=== PATIENT | male | born 1945 | race Caucasian/White ===

== ENCOUNTER 2017-05-19 16:32 | Emergency (ER) | payer MEDICARE, OTHER ==
[2017-05-19] MEDS: LIDOCAINE 1%/EPINEPHRINE 20ML VIAL IJ ONE ×2 (16:55→17:14)
--- NOTE | 2017-05-19 17:13 | ED Physician Documentation ---
Fall - HISTORIAN Historian: patient - HPI Stated Complaint: fell over on ladder Chief Complaint: Fall Onset: just prior to arrival Where: home Context: other (slipped) Associated Symptoms:: no loss of consciousness Location of Pain/Injury: face Injury to Right Extremity: none Injury to Left Extremity: none Further Comments: yes (71 year old male patient presents with laceration to forehead. Patient states hewas on the ladder about 4-5 feet up, ladder slipped. Cut his face on his glasses when he fell. Last tetnus December 2014, denies any ANTON, neck pain or back pain) - ROS CONST: no problems NEURO: denies: dizziness MS/SKIN/LYMPH: denies: weakness, numbness, neck pain, back pain EYES/ENT: none CVS/RESP: none GI/: denies: nausea, vomiting - PAST HX Past History: other (hypertension, HLD) Allergies/Adverse Reactions: Allergies Allergy/AdvReac Type Severity Reaction Status Date / Time No Known Allergies Allergy Verified 05/19/17 16:49 Home Medications: Ambulatory Orders Medication Instructions Recorded Lisinopril [Lisinopril] 20 mg D 12/17/14 Simvastatin [Simvastatin] 40 mg D 12/17/14 - SOCIAL HX Smoking History: non-smoker - FAMILY HX Family History: denies: none - VITAL SIGNS Vital Signs: Vital Signs Temp Pulse Resp BP Pulse Ox 72 16 157/70 95 05/19/17 16:35 05/19/17 16:35 05/19/17 16:35 05/19/17 16:35 - REVIEWED ASSESSMENTS Nursing Assessment Reviewed: Yes Vitals Reviewed: Yes Procedures Wound Location: face Wound Length: 1 cm x 2.5 cm Wound's Depth, Shape: linear Wound Explored: clean Irrigated w/ Saline (ccs): 700 Betadine Prep?: No (chlorhexidine) Anesthesia: Lidocaine w/ Epi Volume of Anesthetic: 7 Suture Size/Type: 6:0 Number of Sutures: 9 Layer Closure?: No Sterile Dressing Applied?: Yes Progress: Patient tolerated well, edges well approximated. ED Results Lab/Radiology - Orders Orders: ED Orders Category Date Time Status Lidocaine 1%/Epinephrine [Xylocaine 1%-EPI 1:100,000] Med 05/19/17 16:50 Discontinued 1 ml IJ .STK-MED ONE Lidocaine 1%/Epinephrine [Xylocaine 1%-EPI 1:100,000] Med 05/19/17 16:52 Discontinued 1 ml IJ NOW ONE Sodium Bicarbonate [Neut] Med 05/19/17 16:51 Discontinued 2.4 meq INJ NOW ONE Fall Physical Exam - Physical Exam General Appearance: mild distress Head: non-tender, no swelling, no obvious injury, trauma (Laceration to forehead L shaped 1 cm x 2.5cm; abrasion between eye brows) Neck: non-tender, painless ROM, trachea midline Eye: JUAN, EOMI, lids & conjunct. nml ENT: nml external inspection Resp/CVS: chest non-tender, no ecchymosis, breath sounds nml, no resp. distress , heart sounds nml Abdomen: soft, no organomegaly, normal bowel sounds, no abdominal bruit, no distension Neuro: oriented x3, CN's nml as tested, sensation nml, motor nml, mood/affect nml, auto glass technician nml, reflexes nml, auto glass technician symmetrical Skin: color nml, no rash, nml palp., dry Back: normal inspection, no CVA tenderness Extremities: atraumatic, pelvis stable, hips non-tender, no pedal edema, nml ROM , nml color/temp - Geneva Coma Score Eyes Open: Spontaneous Speech: Oriented Motor: Obeys Commands Discharge Clincal Impression: Facial laceration Qualifiers: Encounter type: initial encounter Qualified Code(s): S01.81XA - Laceration without foreign body of other part of head, initial encounter Fall from ladder Qualifiers: Encounter type: initial encounter Qualified Code(s): W11.XXXA - Fall on and from ladder, initial encounter Referrals: Primary Doctor,No [Primary Care Provider] - 2 Days Additional Instructions: You can wash or shower after 24 hours. Do not soak the wound in water and make sure it is dry afterwards (gently pat the area dry with a clean towel). Do not get into a swimming pool, hot tub, correa or river until your stitches are removed. To remove your dressing, gently pull it off. If needed, you can dampen it with water then gently pull it off. Clean the laceration twice a day with hibiclens and rinse with water clean away any scabbed area Apply thin coat of antibiotic ointment after cleaning the wound. Cover with non-adherent bandage if able. If you have pain, take simple pain relief medication such as Tylenol or ibuprofen. If bandages or dressings get wet, they will need to be changed. Call your doctor for any signs of symptom of infection redness, drainage, pain. Return to ER if you have: 1. Confusion or very sleepy 2.Severe or worsening headache 3.Seizure 4.Start Vomiting, have fever >101.5, or stiff neck 5.Loss of control or urine or bowel 6.Trouble walking 7.Diet: Start with Clear liquids and advance diet as tolerated. Have your stitches removed at your doctors office in 8-10 days. Disposition: 01 HOME, SELF-CARE Decision to Admit: NO Decision Time: 17:13
[2017-05-19] MEDS: SODIUM BICARBONATE 2.4 MEQ VIAL INJ ONE (17:14)
[2017-05-19 17:29] VITALS: BP 137/59
== END 2017-05-19 17:20 | disposition home or self-care (01) ==
LOC: ED 16:32
DX: S01.81XA Laceration without foreign body of other part of head, initial encounter (principal); W11.XXXA Fall on and from ladder, initial encounter; Y93.9 Activity, unspecified; Y99.9 Unspecified external cause status
CPT/HCPCS: 12013; 99283; J7030

== ENCOUNTER 2018-08-17 11:39 | Emergency (ER) | payer OTHER ==
--- NOTE | 2018-08-17 12:11 | ED Physician Documentation ---
Fall - HISTORIAN Historian: patient - HPI Stated Complaint: fall/head lac Chief Complaint: Fall Additional Information: Patient presents to ED after slipping on ice and falling. He sustained head laceration and complains of left hip/tailbone pain. Patient states he may have lost consciousness for a few seconds. He denies headache, nausea or vomiting. He take Aspirin 81 mg daily, he is not on anticoagulants. Up to date on tetanus Onset: just prior to arrival Where: work Context: slipped (on ice) r: mild Associated Symptoms:: brief (seconds) Location of Pain/Injury: hip (left) Injury to Right Extremity: none Injury to Left Extremity: none Further Comments: no - ROS CONST: denies: fever NEURO: denies: dizziness, anxiety MS/SKIN/LYMPH: denies: weakness, numbness, neck pain, back pain EYES/ENT: denies: problems with vision CVS/RESP: denies: chest pain, shortness of breath GI/: denies: nausea, vomiting - PAST HX Past History: none Allergies/Adverse Reactions: Allergies Allergy/AdvReac Type Severity Reaction Status Date / Time No Known Allergies Allergy Verified 08/17/18 11:58 Home Medications: Ambulatory Orders Medication Instructions Recorded Lisinopril 20 mg D 12/17/14 Simvastatin 40 mg D 12/17/14 Aspirin [Ina] 81 mg PO DAILY 08/17/18 - SOCIAL HX Smoking History: non-smoker Alcohol Use: none Drug Use: none - FAMILY HX Family History: none - VITAL SIGNS Vital Signs: Vital Signs Temp Pulse Resp BP Pulse Ox 89 18 196/73 96 08/17/18 11:45 08/17/18 11:45 08/17/18 11:45 08/17/18 11:45 - REVIEWED ASSESSMENTS Nursing Assessment Reviewed: Yes Vitals Reviewed: Yes ED Results Lab/Radiology - Radiology Radiology Impressions: Examination: CT head without contrast History: LACERATION TO POSTERIOR HEAD AFTER FALL ON ICE TODAY Comparison exam: None available Technique: Noncontrast head CT protocol. Findings: Ventricles and sulci are prominent. Cerebrocerebellar parenchyma demonstrates periventricular low attenuation consistent with small vessel disease. No evidence for parenchymal hemorrhage. No evidence for mass or mass effect. No midline shift. No extra axial fluid collections. Partial visualization of the paranasal sinuses, mastoid air cells, orbits, skull and scalp without gross irregularity. Impression: Age related changes. No acute parenchymal process. No hemorrhage. Electronically signed on Aug 17, 2018 1:02:39 PM REFRIGERATED CARGO CLERK by: Corey Cooper Examination: Plain film pelvis History: PELVIC PAIN AFTER FALL THIS MORNING Comparison exams: None provided Findings: Single view of the pelvis demonstrates osteopenia. Articular degenera tive changes. No fracture. No dislocation. Superior and inferior pubic rami and iliac wings are without abnormality. Impression: Osteopenia and articular degenerative changes. No acute appearing o sseous process. Electronically signed on Aug 17, 2018 1:10:04 PM REFRIGERATED CARGO CLERK by: Corey Cooper - Orders Orders: ED Orders Category Date Time Status CT BRAIN W/O CONTRAST Stat Exams 08/17/18 Ordered PELVIS AP 1 OR 2 VIEWS [RAD] Stat Exams 08/17/18 Ordered Fall Physical Exam - Physical Exam General Appearance: no acute distress, alert Head: non-tender, trauma (y shaped superficial laceration to occipital region) Neck: non-tender, painless ROM Eye: JUAN ENT: nml external inspection, no dental injury Resp/CVS: chest non-tender, breath sounds nml Abdomen: soft Neuro: oriented x3 Skin: no rash Back: normal inspection, no CVA tenderness Extremities: atraumatic, pelvis stable Joint: nml ROM - [place] Coma Score Eyes Open: Spontaneous Speech: Oriented Motor: Obeys Commands Discharge Clincal Impression: Laceration of scalp Qualifiers: Encounter type: initial encounter Qualified Code(s): S01.01XA - Laceration without foreign body of scalp, initial encounter Referrals: Primary Doctor,No [Primary Care Provider] - 2 Days Additional Instructions: 1. Tylenol and/or Ibuprofen as needed for pain 2. Apply ice to affected area as needed for comfort 3. Follow up with PCP within 1 week 4. Return to ER for new or worsening symptoms. Condition: Stable Disposition: 01 HOME, SELF-CARE Decision to Admit: NO Date of Decison to Admit: 08/17/18 Decision Time: 13:01
[2018-08-17 13:19] VITALS: BP 147/69
--- NOTE | 2018-08-17 15:42 | Diagnostic Imaging Report ---
<p>Your browser does not support iframes.</p> VIVEK OSPINA [facility] [address] [facility] [address] [place], [place]. [address] Report Submission Date: Aug 17, 2018 1:02:39 PM DIRECTOR OF INFECTION CONTROL Patient Study Name: GIOVANNY MYRICK Date: Aug 17, 2018 12:21:28 PM DIRECTOR OF INFECTION CONTROL Modality Type: CT\SR Gender: M Description: CT BRAIN W/O CONTRAST : 47 Institution: [facility] Physician: VIVEK OSPINA Examination: CT head without contrast History: LACERATION TO POSTERIOR HEAD AFTER FALL ON ICE TODAY Comparison exam: None available Technique: Noncontrast head CT protocol. Findings: Ventricles and sulci are prominent. Cerebrocerebellar parenchyma demonstrates periventricular low attenuation consistent with small vessel disease. No evidence for parenchymal hemorrhage. No evidence for mass or mass effect. No midline shift. No extra axial fluid collections. Partial visualization of the paranasal sinuses, mastoid air cells, orbits, skull and scalp without gross irregularity. Impression: Age related changes. No acute parenchymal process. No hemorrhage. Electronically signed on Aug 17, 2018 1:02:39 PM DIRECTOR OF INFECTION CONTROL by: Corey ALBERTS
--- NOTE | 2018-08-17 15:43 | Diagnostic Imaging Report ---
<p>Your browser does not support iframes.</p> VIVEK OSPINA [facility] [address] [facility] [address] [address] Report Submission Date: Aug 17, 2018 1:10:04 PM NURSERY SUPERVISOR Patient Study Name: GIOVANNY MYRICK Date: Aug 17, 2018 12:25:01 PM NURSERY SUPERVISOR Modality Type: DX Gender: M Description: PELVIS AP 1 OR 2 VIEWS : 47 Institution: [facility] Physician: VIVEK OSPINA Examination: Plain film pelvis History: PELVIC PAIN AFTER FALL THIS MORNING Comparison exams: None provided Findings: Single view of the pelvis demonstrates osteopenia. Articular degenerative changes. No fracture. No dislocation. Superior and inferior pubic rami and iliac wings are without abnormality. Impression: Osteopenia and articular degenerative changes. No acute appearing osseous process. Electronically signed on Aug 17, 2018 1:10:04 PM NURSERY SUPERVISOR by: Corey ALBERTS
== END 2018-08-17 13:18 | disposition home or self-care (01) ==
LOC: ED 11:39
DX: S01.01XA Laceration without foreign body of scalp, initial encounter (principal); W00.0XXA Fall on same level due to ice and snow, initial encounter; Y93.9 Activity, unspecified; Y92.9 Unspecified place or not applicable; Y99.0 Civilian activity done for income or pay
CPT/HCPCS: 70450; 72170; 99283; 99285